=== PATIENT | female | born 1990 | race Caucasian/White ===

== ENCOUNTER 2018-11-12 14:44 | Inpatient (IN) | payer OTHER ==
[2018-11-12 15:20] VITALS: BMI 29.7
--- NOTE | 2018-11-12 16:09 | PDOC.EVN ---
Event Note - Event Note Event Note: FACULTY NOTE H&P CC: CTX at 40 weeks 1 day Patient of Danielle Avelar HPI: 28 uo G1 at 40 weeks 1 day scheduled for IOL Wednesday, here for possible CTX. Was 2 cm in office yesterday. No VB, no LOF. Good FM Review of Systems: no NUNEZ, no visual changes Past medical: none Surgical: none Allergies: none OB HX: G1 Social: none PHYSICAL: 130/87, 97.8 97, 18 NAD Ut s=D EFW about 7 # CX 3-4/80/-3/Ceph/BOWI Monitors: 130s cat 1 iregular CTX Assessment and Plan: G1 at fill term with latent labor...GBS neg 1. monitor BPs 2. IVF or PO hydrate prn 3. pain meds 4. recheck in 2 hours for final deposition
--- NOTE | 2018-11-12 16:12 | PDOC.FPROB ---
FMR OB H&P: HPI - History of Present Illness Chief Complaint: contractions History of Present Illness: Patient is a 28 yo at 40.1 by 1T sono presenting with contractions she timed every 5-6 minutes since 7:30am this morning and subsequent loss of mucous plug. She was found to be 2cm dilated yesterday at Dr. Avelar's office. She denies vaginal bleeding, leakage of fluid, ongoing vaginal discharge, dysuria, CP, SOB, n/v. Endorses good movement. Primary Care Physician: Dr. Avelar FMR OB H&P: Current - Care : 1 Para: 0 Gestational age: 40.1 Due date: 11/11/2018 Dating Criteria: 1T sono - OB Labs Blood type: A RH: positive Antibody Screen: negative HIV: negative RPR: negative HepBsAg: negative Rubella: immune Quad screen: negative Urine drug screen: negative Gonorrhea: negative Chlamydia: negative Pap Smear: NILM 1 hour gtt: 105 GBS: negative FMR OB H&P: History - Past Medical History PMH: Unremarkable - OB History OB History: Uncomplicated - Surgical History Sx History: None - Social History Social History: no tobacco, alcohol or illicit drug use - Family History Family History: MOM: hyperlipidemia, HTN, hypothyroidism DAD: hyperlipidemia, HTN FMR OB H&P: Medications - Current Allergies/Adverse Reactions: Allergies Allergy/AdvReac Type Severity Reaction Status Date / Time No Known Allergies Allergy Verified 11/12/18 15:22 FMR OB H&P: ROS - Review of Systems General: denies: fever/chills, recent trauma Eyes: denies: vision changes, double vision ENT: denies: nasal congestion Cardiovascular: reports: edema. denies: chest pain, palpitation Respiratory: denies: shortness of breath Gastrointestinal: denies: abdominal pain, nausea, vomiting, constipation Genitourinary (Female): reports: contractions. denies: dysuria, vaginal bleeding Neurologic: denies: headache Integumentary: denies: itching, rash Hematologic/Lymphatic: denies: prolonged or excessive bleeding FMR OB H&P: Vital Signs - Maternal Vital signs: Vital Signs - First Documented Temp Pulse Resp BP 97.8 F 97 16 130/87 11/12/18 15:12 11/12/18 15:12 11/12/18 15:12 11/12/18 15:12 - Heart Tones Baseline: 130 Variability: moderate Acceleration: present Deceleration: absent Category: category 1 [place] contractions every: 5 minutes FMR OB H&P: Physical Exam - Physical Exam General: awake, alert and oriented HEENT: normocephalic and atraumatic, conjunctiva clear Neck: supple, trachea midline Chest: no lesions Heart: RRR, normal S1/S2, no murmurs/rubs/gallops, pulses present Deviation from normal: bilateral LE nonpitting edema present General: CTAB, no respiratory distress, no rales/rhonchi, no wheezing Abdomen: gravid Musculoskeletal: pulses present Neurological: no clonus, no focal deficit Skin: no rash, capillary refill <2 seconds - Pelvic Exam SVE: /-3 Membranes: intact Presentation: vertex FMR OB H&P: A/P - Problem List (1) Normal first stage of labor Current Visit: Yes Status: Acute Code(s): [id number] - Disposition: 28 yo G1 @ 40.1w here in latent labor 1. Latent labor - /-3 - PO hydration - recheck cervix in 2 hours Discussion: Date/Time: 11/12/18 1605 This H&P was discussed with Dr. Moran who agrees with the above documentation and plan.
[2018-11-12] MEDS ORDERED: Promethazine HCl 25 MG/ML VIAL IM PRN ×2 (18:18→21:37)
[2018-11-12] MEDS ORDERED: Ondansetron PF 4 MG/2 ML Vial IVP PRN ×2 (18:18→21:37)
[2018-11-12] MEDS ORDERED: Lidocaine 1% (PF) 30 ML VIAL SC PRN (18:18)
--- NOTE | 2018-11-12 18:22 | PDOC.EVN ---
Event Note - Event Note Event Note: Recheck: patient seen and evaluated at bedside with Dr Paulino...recheck was ..BOWI. We will admit for pain control and early labor. Pitocin if needed through labor as augmentation. Pain meds prn. I notified Dr Avelar, who is unavailable at this time.
[2018-11-12] MEDS ORDERED: NS w/ Oxytocin 10 units 500 ML IV SCH (18:30)
[2018-11-12] MEDS ORDERED: Lactated Ringer's 1,000 ML IV SCH (18:30)
[2018-11-12] MEDS ORDERED: Fentanyl 4 mcg/Bup 0.1% Cadd 100 ML ONE (19:29)
[2018-11-12] MEDS: Lactated Ringer's 1,000 ML IV SCH (19:45)
[2018-11-12 19:50] LABS: Hemoglobin 13.5 g/dL (12.0-16.0); Mean Corpuscular HGB CONC 32.3 g/dL (32.0-36.0); Mean Corpuscular Hemoglobin 29.1 pg (27.0-31.0); Mean Corpuscular Volume 90.3 fL (78.0-98.0); Mean Platelet Volume 9.8 fL (7.4-10.4); Platelet Count 223 thou/uL (130-400); RBC Distribution Width 12.5 % (11.5-14.5); Red Blood Cell (RBC) Count 4.65 mill/uL (4.20-5.40); White Blood Cell (WBC) Count 13.8 thou/uL (4.8-10.8)
[2018-11-12 20:35] LABS: Syphilis Antibody Nonreactive (Nonreactive); Syphilis Antibody Index 0.03 S/CO (<1.00 Non-Reactive)
[2018-11-12] MEDS: Fentanyl 4 mcg/Bupivacaine 0.1% Cassette 100 ML EPIDURAL SCH (20:35)
--- NOTE | 2018-11-12 20:58 | PDOC.LDPN ---
Labor & Delivery Progress Note - Subjective Subjective: comfortable - Objective Vital signs reviewed and normal: yes General: resting Uterine fundus: non tender Dilation: 5 Effacement: 100% Station: -1 FHT: category 1 (120/mod/+accel/no decel) [place] contractions every: 3-4 minutes - Assessment (1) Normal first stage of labor Code(s): [id number] - Current Visit: Yes Status: Acute (2) Term Code(s): Z34.80 - [facility] UN[facility] Current Visit: Yes Status: Acute Plan: continue plan of care -: 28 yo at 40.1w by 1T sono here in latent labor 1. Latent labor - Making cervical change now 5/100/-1 - Now comfortable with epidural - Continue expectant management Recheck in 4 hours or sooner if indicated
[2018-11-12] MEDS ORDERED: diphenhydrAMINE 50 MG/ML VIAL IVP PRN (21:37)
[2018-11-12] MEDS ORDERED: Acetaminophen 325 MG TAB PO PRN (21:37)
[2018-11-12] MEDS ORDERED: ePHEDrine/0.9% NaCl/PF SYRINGE 50 mg/10 ml SLOW IVP PRN (21:37)
[2018-11-12] MEDS ORDERED: Lactated Ringer's 500 ML IV PRN (21:37)
[2018-11-12] MEDS ORDERED: Naloxone HCl 0.4 mg/ml Vial IVP PRN ×2 (21:37)
[2018-11-12] MEDS ORDERED: Eucerin (Mineral Oil/Petrolatum,White) 30 gm Jar TOP PRN (21:37)
[2018-11-12] MEDS ORDERED: Communication Order-Pharmacy FS SCH (21:45)
[2018-11-12 23:26] LABS: Hep B Surf Ag Non-Reactive S/CO (NonReactive)
--- NOTE | 2018-11-13 01:11 | PDOC.LDPN ---
Labor & Delivery Progress Note - Subjective Subjective: comfortable - Objective Vital signs reviewed and normal: yes General: resting Dilation: 6 Effacement: 100% Station: -1 FHT: category 1 (120/mod/+accel/no decel) [place] contractions every: 2 - Assessment (1) Normal first stage of labor Code(s): [id number] - Current Visit: Yes Status: Acute (2) Term Code(s): Z34.80 - ENCOUNTER FOR [facility] OF NORMAL , UNSP TRIMESTER Current Visit: Yes Status: Acute Plan: continue plan of care -: 28 yo at 40.1w by 1T sono now in active labor 1. Active labor - Making cervical change now 6/100/-1 - Now comfortable with epidural - Continue expectant management Recheck q2 hours
[2018-11-13] MEDS ORDERED: Fentanyl 4 mcg/Bup 0.1% Cadd 100 ML ONE (04:03)
[2018-11-13] MEDS: Fentanyl 4 mcg/Bupivacaine 0.1% Cassette 100 ML EPIDURAL SCH (04:10)
[2018-11-13] MEDS ORDERED: Lidocaine 2% 10 ML INJ ONE ×2 (04:23→06:21)
[2018-11-13] MEDS ORDERED: Fentanyl 100 MCG/2 ML VIAL ONE (04:34)
--- NOTE | 2018-11-13 06:27 | PDOC.LDPN ---
Labor & Delivery Progress Note - Subjective Subjective: vaginal pressure - Objective Vital signs reviewed and normal: yes General: resting Dilation: 9 Effacement: 100% Station: -1 FHT: category 1 (130/mod/+accel/no decel) [place] contractions every: 4 - Assessment (1) Normal first stage of labor Code(s): [id number] - Current Visit: Yes Status: Acute (2) Term Code(s): Z34.80 - ENCOUNTER FOR SUPRVSN OF NORMAL , UNSP TRIMESTER Current Visit: Yes Status: Acute Plan: continue plan of care -: 28 yo at 40.1w by 1T sono in active labor 1. Active labor - Making cervical change now 100/-1 - Continue expectant management Recheck q2 hours
[2018-11-13] MEDS ORDERED: Lidocaine 2% MPF 10 ML AMP (For Epidural Use) ONE ×2 (09:00→17:52)
[2018-11-13] MEDS ORDERED: Bupivacaine PF 0.5% 30 ML VIAL ONE (09:00)
[2018-11-13] MEDS: NS / Oxytocin 40 units/1000ml 1,000 ML IV PRN ×2 (09:26→10:45)
[2018-11-13] MEDS: Lactated Ringer's 1,000 ML IV SCH ×3 (09:34→19:35)
[2018-11-13] MEDS: NS w/ Oxytocin 10 units 500 ML IV SCH ×2 (09:34→19:35)
--- NOTE | 2018-11-13 09:51 | PDOC.OPDEL ---
OB Operative/Delivery Note Delivery Dr/Surgeon: Inge Paulino MD (MS3: Pierre Lambert) Assist: Attending: Ruddy Jackson MD Pre-Delivery Diagnosis: active labor Procedure/Post Delivery Dx: spontaneous vaginal delivery Weeks gestation: 40 (40.2) Anesthesia: epidural - Findings A Sex: male - 1 min: 9 - 5 min: 10 - Additional Findings/Plan Placenta delivered: spontaneous Repaired Obstetrical Laceration: 2nd degree Estimated blood loss: 450 mL (QBL pending) Post delivery plan: routine recovery Addendum - Attending - Attending Attestation Date/Time: 11/13/18 1016 I personally evaluated the patient and discussed the management with Dr. Paulino. Present for this and repair of MLE. I agree with the Assessment and Plan documented above.
[2018-11-13] MEDS ORDERED: Bisacodyl 10 MG SUPP PR PRN (12:45)
[2018-11-13] MEDS ORDERED: Milk Of Magnesia 30 ML UDCUP PO PRN (12:45)
[2018-11-13] MEDS ORDERED: Varicella virus, LIVE 0.5 ML VIAL SC ONE (12:45)
[2018-11-13] MEDS ORDERED: NS / Oxytocin 40 units/1000ml 1,000 ML IV SCH (12:45)
[2018-11-13] MEDS ORDERED: Adacel (T-DAP) 0.5 ML SYRINGE IM ONE (12:45)
[2018-11-13] MEDS ORDERED: Measles/Mumps/Rubella 10 MCG/0.5 ML VIAL SC ONE (12:45)
[2018-11-13] MEDS ORDERED: Benzocaine/Menthol 20-0.5% 60 ML CAN TOP PRN (12:45)
[2018-11-13] MEDS ORDERED: Lanolin Ointment 7 GM TUBE TOP PRN (12:45)
[2018-11-13] MEDS: Ibuprofen 800 MG TAB PO SCH ×2 (14:16→21:42)
[2018-11-13] MEDS: Docusate Calcium (SURFAK) 240 MG CAP PO SCH (21:42)
[2018-11-14] MEDS: Lactated Ringer's 1,000 ML IV SCH ×3 (05:33→18:56)
[2018-11-14] MEDS: Ibuprofen 800 MG TAB PO SCH ×3 (05:35→21:50)
--- NOTE | 2018-11-14 07:57 | PDOC.PP ---
Post Progress Note Post Day #: 1 Subjective: Doing well, breast feeding, request DC if baby able to go home today. Min lochia. PO intake tolerated: yes Flatus: yes Ambulation: yes Vital Signs (12 hours) Temp Pulse Resp BP Pulse Ox 11/14/18 07:53 97.7 F 113 H 20 130/77 11/14/18 04:36 98.4 F 98 16 125/63 97 11/14/18 01:00 98.2 F 93 18 128/65 98 11/13/18 19:56 97.9 F 98 16 136/76 100 Weight Weight 184 lb - Physical Examination General: NAD Respiratory: non-labored breathing Abdominal: no distention Fundus firm & at: below umb Skin: no rash Neurological: no gross focal deficits Psychiatric: A&Ox3, normal affect Result Diagrams: 11/14/18 07:36 Additional Labs: Post Labs Blood Type A POSITIVE 11/12/18 19:44 Hep Bs Antigen Non-Reactive S/CO (NonReactive) 11/12/18 19:44 (1) Vaginal delivery Code(s): O80 - ENCOUNTER FOR FULL-TERM UNCOMPLICATED DELIVERY Status: Acute (2) Term Code(s): Z34.80 - ENCOUNTER FOR [facility] OF NORMAL , UNSP TRIMESTER Status: Acute - Assessment/Plan PPD1 doing well, no concerns, plan for DC when baby dc.
[2018-11-14 08:16] LABS: Hemoglobin 10.8 g/dL (12.0-16.0); Mean Corpuscular HGB CONC 33.6 g/dL (32.0-36.0); Mean Corpuscular Hemoglobin 30.7 pg (27.0-31.0); Mean Corpuscular Volume 91.3 fL (78.0-98.0); Mean Platelet Volume 9.2 fL (7.4-10.4); Platelet Count 226 thou/uL (130-400); RBC Distribution Width 12.3 % (11.5-14.5); Red Blood Cell (RBC) Count 3.51 mill/uL (4.20-5.40); White Blood Cell (WBC) Count 17.9 thou/uL (4.8-10.8)
[2018-11-14] MEDS: Prenatal Vitamin 1 TAB PO SCH (09:03)
[2018-11-14] MEDS: Docusate Calcium (SURFAK) 240 MG CAP PO SCH ×2 (09:03→21:50)
[2018-11-14] MEDS: NS w/ Oxytocin 10 units 500 ML IV SCH (18:56)
[2018-11-15] MEDS: Lactated Ringer's 1,000 ML IV SCH (05:34)
[2018-11-15] MEDS: Ibuprofen 800 MG TAB PO SCH (06:35)
--- NOTE | 2018-11-15 08:10 | PDOC.PP ---
Post Progress Note Post Day #: 2 Subjective: doing well, no concerns, ready for DC, sp LC PO intake tolerated: yes Flatus: yes Ambulation: yes Weight Weight 184 lb - Physical Examination General: NAD Respiratory: non-labored breathing Abdominal: no distention Neurological: no gross focal deficits Psychiatric: A&Ox3, normal affect Result Diagrams: 11/14/18 07:36 Additional Labs: Post Labs Blood Type A POSITIVE 11/12/18 19:44 Hep Bs Antigen Non-Reactive S/CO (NonReactive) 11/12/18 19:44 (1) Vaginal delivery Code(s): O80 - ENCOUNTER FOR FULL-TERM UNCOMPLICATED DELIVERY Status: Acute (2) Term Code(s): Z34.80 - ENCOUNTER FOR [facility] OF NORMAL , UNSP TRIMESTER Status: Acute - Assessment/Plan A/P: PPD2 doing well, plan for DC today.
[2018-11-15 08:14] VITALS: BP 123/78; TEMP 97.9
[2018-11-15] MEDS: Prenatal Vitamin 1 TAB PO SCH (09:13)
[2018-11-15] MEDS: Docusate Calcium (SURFAK) 240 MG CAP PO SCH (09:13)
== END 2018-11-15 13:00 | disposition home or self-care (01) | DRG 807 ==
LOC: L&D/OP 14:44 → L&D 19:25 → 3SE 11-13 12:40
PROVIDERS: ADMIT Obstetrics & Gynecology; ATTEND Obstetrics & Gynecology
PROC: 10E0XZZ Delivery of Products of Conception, External Approach (ICD-10-PCS; principal; 2018-11-13)
PROC: 0KQM0ZZ Repair Perineum Muscle, Open Approach (ICD-10-PCS; 2018-11-13)
DX: O48.0 Post-term pregnancy (principal); Z37.0 Single live birth; Z3A.40 40 weeks gestation of pregnancy; O70.1 Second degree perineal laceration during delivery
CPT/HCPCS: 36415; 51701; 51702; 85027; 86780; 86850; 86900; 86901; 87340; 90707; 90716; 99285; J2001; J3010; S0020